=== PATIENT | female | born 1975 | race African-American/Black ===

== ENCOUNTER 2023-12-27 09:35 | Emergency (ER) | payer MEDICAID ==
[~2023-12-27] VITALS: Ht 177.8 cm; Wt 82.0 kg
[2023-12-27 09:44] VITALS: TEMP 98; O2SAT 97
[2023-12-27] MEDS: ONDANSETRON HCL 4MG/2ML INJ IV ONE (11:27)
[2023-12-27] MEDS: MORPHINE SULFATE 4 MG/ML INJ (FOR IV/IM USE) IV ONE (11:27)
[2023-12-27 13:28] VITALS: BP 154/92; PULSE 104; RESP 16
[2023-12-27] MEDS: HYDROCODONE/ACETAMINOPHEN 10/325MG TABLET PO ONE (13:28)
[2023-12-27] MEDS ORDERED: HYDR-4009 MT ×2 (14:00→14:05)
== END 2023-12-27 15:23 | disposition home or self-care (01) ==
LOC: ER 09:47
DX: M25.561 Pain in right knee (principal); M25.571 Pain in right ankle and joints of right foot; I10 Essential (primary) hypertension; R60.9 Edema, unspecified
CPT/HCPCS: 73560; 73700; 96374; 96375; 99285; J2405; J2270; Z7610; L1830